=== PATIENT | female | born 1985 | race Caucasian/White ===

== ENCOUNTER 2022-11-20 12:59 | Emergency (ER) | payer MEDICAID ==
[~2022-11-20] VITALS: Ht 175.3 cm; Wt 73.0 kg
[2022-11-20 13:00] VITALS: BP 167/108
[2022-11-20] MEDS ORDERED: SULF1TAB49 PO (15:43)
[2022-11-20] MEDS ORDERED: bacitracin 15gm ointment TP ONE (15:45)
[2022-11-20] MEDS ORDERED: sulfamethoxazole/trimethoprim DS (800/160mg) tablet PO ONE (15:45)
[2022-11-20] MEDS ORDERED: LIDOcaine 1% 30ml preserv. free vial IJ ONE (15:45)
== END 2022-11-20 16:54 | disposition home or self-care (01) ==
LOC: ER 13:00
DX: L02.01 Cutaneous abscess of face (principal); Z86.14 Personal history of Methicillin resistant Staphylococcus aureus infection; Z56.0 Unemployment, unspecified; Z88.8 Allergy status to other drugs, medicaments and biological substances
CPT/HCPCS: 99283

== ENCOUNTER 2023-02-27 14:36 | Emergency (ER) | payer MEDICAID | END 2023-02-27 16:49 | disposition left against medical advice (07) | LOC: ER 14:37 | DX: R22.0 Localized swelling, mass and lump, head (principal); Z53.21 Procedure and treatment not carried out due to patient leaving prior to being seen by health care provider ==

== ENCOUNTER 2023-03-05 11:06 | Emergency (ER) | payer MEDICAID ==
[~2023-03-05] VITALS: Ht 170.2 cm; Wt 76.0 kg
[2023-03-05 11:16] VITALS: BP 169/102
[2023-03-05] MEDS ORDERED: CEPH250T PO (11:47)
[2023-03-05] MEDS ORDERED: NAPR-56 PO (11:47)
[2023-03-05] MEDS ORDERED: DOXY-356 PO (11:47)
== END 2023-03-05 11:52 | disposition home or self-care (01) ==
LOC: ER 11:07
DX: K04.7 Periapical abscess without sinus (principal); Z86.14 Personal history of Methicillin resistant Staphylococcus aureus infection; Z59.00 Homelessness unspecified; Z88.8 Allergy status to other drugs, medicaments and biological substances
CPT/HCPCS: 99283

== ENCOUNTER 2024-07-15 08:35 | Emergency (ER) | payer MEDICAID ==
[~2024-07-15] VITALS: Ht 172.7 cm; Wt 68.2 kg
[2024-07-15 09:19] LABS: BILIRUBIN,URINE NEGATIVE (Neg); CLARITY,URINE SLIGHTLY CLOUDY (Clear); COLOR,URINE YELLOW (Yellow); GLUCOSE, URINE NEGATIVE (Neg); KETONES,URINE TRACE mg/dl (Neg); LEUKOCYTE ESTERASE ,URINE TRACE (Neg); NITRITES, URINE NEGATIVE (Neg); OCCULT BLOOD,URINE NEGATIVE (Neg); PH,URINE 7.5 (4.8-8.0); PROTEIN,URINE NEGATIVE (Neg); UA COLLECTION TYPE CLN CATCH MIDSTREAM; URINE HCG NEGATIVE (NEG)
[2024-07-15 09:24] LABS: BASOPHILS % (AUTO) 0.6 % (0-1); EOSINOPHILS # (AUTO) 0.1 X10'3 (0-0.9); EOSINOPHILS % (AUTO) 1.2 % (0-6); HEMATOCRIT 43.1 % (35.0-45.0); HEMOGLOBIN 14.4 g/dl (12.0-16.0); LYMPHOCYTES # (AUTO) 0.3 X10'3 (1.1-4.8); LYMPHOCYTES % (AUTO) 3.7 % (21-51); MEAN CORPUSCULAR HEMOGLOBIN 30.8 PG (27.0-31.0); MEAN CORPUSCULAR HGB CONC 33.4 g/dL (33.0-36.5); MEAN CORPUSCULAR VOLUME 92.1 FL (78-98); MEAN PLATELET VOLUME 6.8 FL (7.4-10.4); MONOCYTES # (AUTO) 0.2 X10'3 (0-0.9); MONOCYTES % (AUTO) 3.2 % (2-12); NEUTROPHILS # (AUTO) 6.9 X10'3 (1.8-7.7); NEUTROPHILS % (AUTO) 91.3 % (42-75); PLATELET COUNT 321 X10'3 (140-440); RED BLOOD COUNT 4.68 X10'6 (4.20-5.60); RED CELL DISTRIBUTION WIDTH 12.8 % (11.5-14.5); WHITE BLOOD COUNT 7.5 X10'3 (4.5-11.0)
[2024-07-15 09:32] LABS: ALANINE AMINOTRANSFERASE 19 U/L (12-78); ALBUMIN 3.8 G/DL (3.4-5.0); ALKALINE PHOSPHATASE 73 IU/L (46-116); ANION GAP 9 (8-16); ASPARTATE AMINO TRANSFERASE 17 U/L (10-37); BILIRUBIN,TOTAL 1.1 MG/DL (0.1-1.0); BLOOD UREA NITROGEN 8 MG/DL (7-18); BUN/CREATININE RATIO 10.8 (10.0-20.0); CALCIUM 8.6 MG/DL (8.5-10.1); CHLORIDE 101 MMOL/L (99-107); CREATININE 0.74 MG/DL (0.40-0.90); GLUCOSE 108 MG/DL (70-104); LIPASE 26 U/L (16-77); POTASSIUM 3.8 MMOL/L (3.5-5.1); SODIUM 136 MMOL/L (135-145); TOTAL PROTEIN 7.6 G/DL (6.4-8.2); eCRCL 105 ML/MIN; eGFR 88 ML/MIN
[2024-07-15 09:33] LABS: SQUAMOUS EPITHELIAL CELL,UR MANY /LPF (FEW)
[2024-07-15 09:34] LABS: BACTERIA,URINE 1+ /HPF (Neg); RBC,URINE NONE SEEN /HPF (0-2)
[2024-07-15] MEDS: ondansetron/PF 4mg/2ml inj IV ONE (10:55)
[2024-07-15] MEDS: normal saline 1000ML IV soln IVB ONE (10:55)
[2024-07-15] MEDS: ketorolac trometh 15mg/ml vial 15 MG/ML ML IV ONE (10:55)
[2024-07-15 11:35] VITALS: BP 155/94; PULSE 92; RESP 17; TEMP 97.2; O2SAT 100
== END 2024-07-15 11:36 | disposition home or self-care (01) ==
LOC: ER 08:35
DX: K29.00 Acute gastritis without bleeding (principal); E86.0 Dehydration; R11.2 Nausea with vomiting, unspecified; F17.200 Nicotine dependence, unspecified, uncomplicated; Z56.0 Unemployment, unspecified; Z72.89 Other problems related to lifestyle; Z88.8 Allergy status to other drugs, medicaments and biological substances
CPT/HCPCS: 36415; 80053; 81001; 81025; 83690; 85025; 96361; 96374; 96375; 99284; J1885; J2405; J7030